=== PATIENT | female | born 1990 | race American Indian/Alaskan Native ===

== ENCOUNTER 2019-12-30 05:10 | Emergency (ER) | payer SELFPAY ==
[2019-12-30] MEDS ORDERED: HYDROcodone/ACETAMINOPHEN 5-325 MG TAB ONE (09:45)
--- NOTE | 2019-12-31 08:08 | Ultrasound Report ---
[facility] OBSTETRIC ULTRASOUND ULTRASOUND OB TRANSVAGINAL HISTORY: Vaginal bleeding COMPARISON: None. TECHNIQUE: Routine transabdominal and transvaginal OB ultrasound performed. Comment: This examination is just presented to me for interpretation due to technical factors at the hospital. FINDINGS: Uterus: Anteverted and normal size measuring 7.7 x 4.1 x 4.6 cm. Gestational Sac: Well-defined but slightly elongated. Yolk Sac: Not clearly seen Fetus/Embryo: Commerce-rump length of 0.33 cm, corresponding to an estimated gestational age of 6 weeks 0 days. Embryonic/ anatomy is too small for evaluation. Embryonic/ cardiac activity: 78bpm Placenta: Too small for evaluation. Amniotic fluid volume: Subjectively appropriate for gestational age. Ovaries: The right ovary is normal in size and appearance with normal blood flow, measuring 3.1 x 1. 5 x 3.4 cm. The left ovary is normal in size and appearance with normal blood flow, measuring 2.2 x 3.5 x 4.5 cm. Additional findings: None. IMPRESSION An intrauterine gestational sac containing a fetus is identified which correlates with a 6 week 0 day . The gestational sac appears slightly elongated. The yolk sac is not clearly seen. h eart rate measures 78 bpm. Close interval follow-up is recommended. Signer Name: Zi Noland Jr, MD Signed: 12/31/2019 8:04 AM Workstation Name: [id number]
[2020-01-07 13:33] LABS: Alanine Aminotransferase 12 units/L (7-56); BUN/Creatinine Ratio 23; Blood Urea Nitrogen 18 mg/dL (7-17); Calcium 9.3 mg/dL (8.4-10.2)
[2020-01-07 13:34] LABS: Albumin 4.4 g/dL (3.9-5)
[2020-01-07 13:34] LABS: BUN/Creatinine Ratio 23; Blood Urea Nitrogen 16 mg/dL (7-17)
[2020-01-07 13:35] LABS: Alanine Aminotransferase 14 units/L (7-56); Albumin 4.1 g/dL (3.9-5); Calcium 9.2 mg/dL (8.4-10.2)
== END 2019-12-30 20:00 | disposition home or self-care (01) ==
LOC: ED 05:10
DX: N93.9 Abnormal uterine and vaginal bleeding, unspecified (principal); Z53.21 Procedure and treatment not carried out due to patient leaving prior to being seen by health care provider
CPT/HCPCS: 36415; 76801; 76817; 80053

== ENCOUNTER 2020-01-01 16:29 | Emergency (ER) | payer SELFPAY ==
[2020-01-01 17:54] LABS: Bilirubin,Urine NEG (Negative); Blood,Urine NEG (Negative); Color,Urine Yellow (Yellow); Mucus,Urine FEW /HPF; Protein,Urine <15 mg/dL mg/dL (Negative); Urobilinogen,Urine < 2.0 mg/dL (<2.0)
[2020-01-01 17:59] LABS: Basophils % (Auto) 0.5 % (0.0-1.8); Eosinophils # (Auto) 0.1 K/mm3 (0.0-0.4); Eosinophils % (Auto) 1.4 % (0.0-4.3); Hematocrit 34.3 % (30.3-42.9); Hemoglobin 11.1 gm/dl (10.1-14.3); Lymphocytes % (Auto) 28.8 % (13.4-35.0); Mean Corpuscular HGB Conc 32 % (30-34); Mean Corpuscular Volume 75 fl (79-97); Monocytes # (Auto) 0.8 K/mm3 (0.0-0.8); Monocytes % (Auto) 10.9 % (0.0-7.3); Platelet Count 232 K/mm3 (140-440); Red Blood Count 4.55 M/mm3 (3.65-5.03); Red Cell Distribution Width 15.4 % (13.2-15.2)
[2020-01-01 18:08] LABS: BUN/Creatinine Ratio 15; Blood Urea Nitrogen 12 mg/dL (7-17); Calcium 9.7 mg/dL (8.4-10.2); Hemolysis Index 4
--- NOTE | 2020-01-01 18:49 | Emergency Department Report ---
<PETR CHRISTIANSON - Last Filed: 01/01/20 20:44> ED General Adult HPI - General Chief complaint: Recheck/Abnormal Lab/Rx Stated complaint: FOLLOW UP ED VISIT Time Seen by Provider: 01/01/20 17:22 - Related Data Allergies Allergy/AdvReac Type Severity Reaction Status Date / Time No Known Allergies Allergy Unverified 01/01/20 16:30 ED Medical Decision Making - Lab Data Result diagrams: 01/01/20 17:23 01/01/20 17:23 - Radiology Data Radiology results: report reviewed, image reviewed Findings Reporting MD: Lj Loving Dictation Time: January 01, 2020 17:56 Enrolled Agent: Not available [employer] Date: US OB <= 14 weeks fetus INDICATION / CLINICAL INFORMATION: abd cramping, spotting, abnormal US on 12/29. COMPARISON: 12/30/2019 FINDINGS: A 1.6 cm gestational sac is demonstrated within the endometrial canal, but there is no evidence of pole. Ovaries are negative. No free fluid. IMPRESSION: 1. Findings are very suggestive of demise. Suggest follow-up in 4-5 days to confirm. Signer Name: Lj Loving MD Signed: 01/01/2020 5:56 PM Workstation Name: [id number] ED Disposition Clinical Impression: demise Disposition: DC- TO HOME OR SELFCARE Condition: Stable Instructions: Threatened Miscarriage (ED) Additional Instructions: Please follow-up with [facility] within the next 2 days. It is very important that you follow-up. Return to emergency room for any new or worsening symptoms. Referrals: [facility] [Provider Group] - 2-3 Days [facility] [Provider Group] - 2-3 Days [facility] [Provider Group] - 2-3 Days Print Language: NEPALI <KINGSTON LARA - Last Filed: 01/01/20 21:53> ED General Adult HPI - General Source: patient Mode of arrival: Ambulatory Limitations: No Limitations - History of Present Illness Initial comments: Patient is a 29-year-old female presents emergency room with complaints of a recheck. Patient states that she was evaluated in the emergency department 2 days ago due to heavy vaginal bleeding. She had an ultrasound performed at that time which showed an intrauterine gestational sac containing a fetus is identified which correlates with a 6-week 0-day . The gestational sac appears slightly elongated. The yolk sac is not clearly seen. heart rate measured 78 bpm. Close interval follow-up is recommended. This patient was seen during downtime procedures, her labs are not available for review. She states that the heavy bleeding has resolved. She states that she has intermittent very mild lower abdominal cramping. She denies any significant abd ominal pain. She denies any nausea, vomiting, diarrhea, fever, dysuria, abnormal vaginal discharge. Patient states that she had a tubal ligation. No past medical history. No allergies medications. ED Review of Systems ROS: Stated complaint: FOLLOW UP ED VISIT Other details as noted in HPI Comment: All other systems reviewed and negative ED Past Medical Hx - Past Medical History Hx Hypertension: Yes - Surgical History Additional Surgical History: TUBAL LIG ED Physical Exam - General Limitations: No Limitations General appearance: alert, in no apparent distress - Head Head exam: Present: atraumatic, normocephalic - Eye Eye exam: Present: normal appearance - ENT ENT exam: Present: mucous membranes moist - Respiratory Respiratory exam: Present: normal lung sounds bilaterally. Absent: respiratory distress, wheezes, rales, rhonchi, stridor, chest wall tenderness, accessory muscle use, decreased breath sounds, prolonged expiratory - Cardiovascular Cardiovascular Exam: Present: regular rate, normal rhythm, normal heart sounds. Absent: systolic murmur, diastolic murmur, rubs, gallop - GI/Abdominal GI/Abdominal exam: Present: soft, normal bowel sounds. Absent: distended, tenderness, guarding, rebound, rigid - Neurological Exam Neurological exam: Present: alert, oriented X3, CN II-XII intact, normal gait. Absent: motor sensory deficit - Psychiatric Psychiatric exam: Present: normal affect, normal mood - Skin Skin exam: Present: warm, dry, intact ED Course Vital Signs 01/01/20 01/01/20 16:32 20:58 Temperature 98.8 F Pulse Rate 92 H 86 Respiratory 16 18 Rate Blood Pressure 119/80 Blood Pressure 128/82 [Left] O2 Sat by Pulse 97 100 Oximetry ED Medical Decision Making - Lab Data Result diagrams: 01/01/20 17:23 01/01/20 17:23 - Radiology Data Radiology results: report reviewed, image reviewed - Medical Decision Making Patient is a 29-year-old female presents emergency room with complaints of a recheck. Patient states that she was evaluated in the emergency department 2 days ago due to heavy vaginal bleeding. She had an ultrasound performed at that time which showed an intrauterine gestational sac containing a fetus is identified which correlates with a 6-week 0-day . The gestational sac appears slightly elongated. The yolk sac is not clearly seen. heart rate measured 78 bpm. Close interval follow-up is recommended. This patient was seen during downtime procedures, her labs are not available for review. She states that the heavy bleeding has resolved. She states that she has intermittent very mild lower abdominal cramping. She denies any significant abdominal pain. She denies any nausea, vomiting, diarrhea, fever, dysuria, abnormal vaginal discharge. Patient states that she had a tubal ligation. No past medical history. No allergies medications. Vitals are normal. No abdominal tenderness on exam, no guarding, no rebound, no rigidity. Labs are normal. hCG quant is less than 2. Patient is Rh+. OB ultrasound: 1. Findings are very suggestive of demise. Suggest follow-up in 4-5 days to confirm. Discussed with patient that at this appears to be demise with retained products of conception. Advised patient that she would need to follow-up with [facility] within the next 2 days. Discussed the importance of [facility] follow-up. Discussed with patient that the risk associated with not following up would be a serious infection. Patient verbalized understanding and states that she will follow-up. advised pt Please follow-up with [facility] within the next 2 days. It is very important that you follow-up. Return to emergency room for any new or worsening symptoms. - Differential Diagnosis Ectopic, IUP, threatened/spontaneous miscarriage, demise Critical care attestation.: If time is entered above; I have spent that time in minutes in the direct care of this critically ill patient, excluding procedure time. ED Disposition Is pt being admited?: No Does the pt Need Aspirin: No Time of Disposition: 20:46
[2020-01-01 20:59] VITALS: BP 128/82
--- NOTE | 2020-01-02 07:54 | Ultrasound Report ---
US OB transvaginal INDICATION / CLINICAL INFORMATION: abd cramping, spotting, abnormal US on 12/29. COMPARISON: 12/30/2019 FINDINGS: Uterus now contains a 1.6 cm cystic structure in the endometrial canal. No evidence of pole or yolk sac. Endometrial thickness measures 6 mm. Both ovaries appear unremarkable. No free fluid. IMPRESSION: 1. Gestational sac but no evidence of pole. Suggest follow-up in 4-5 days to confirm stuart se. Signer Name: Lj Loving MD Signed: 01/01/2020 6:54 PM Workstation Name: [id number]
--- NOTE | 2020-01-02 07:55 | Ultrasound Report ---
US OB <= 14 weeks fetus INDICATION / CLINICAL INFORMATION: abd cramping, spotting, abnormal US on 12/29. COMPARISON: 12/30/2019 FINDINGS: A 1.6 cm gestational sac is demonstrated within the endometrial canal, but there is no evidence of fe magalis pole. Ovaries are negative. No free fluid. IMPRESSION: 1. Findings are very suggestive of demise. Suggest follow-up in 4-5 days to confirm. Signer Name: Lj Loving MD Signed: 01/01/2020 6:56 PM Workstation Name: [id number]
== END 2020-01-01 20:59 | disposition home or self-care (01) ==
LOC: ED 16:29
DX: O36.4XX1 Maternal care for intrauterine death, fetus 1 (principal)
CPT/HCPCS: 36415; 76801; 76817; 80048; 81001; 84702; 85025; 86900; 86901

== ENCOUNTER 2020-03-12 13:44 | Emergency (ER) | payer SELFPAY ==
[2020-03-12 14:02] VITALS: BP 164/96
[2020-03-12] MEDS ORDERED: diphenhydrAMINE 50 MG/ML VIAL IV ONE (14:02)
[2020-03-12] MEDS ORDERED: dexAMETHasone 20 MG/5 ML VIAL IV ONE (14:02)
[2020-03-12] MEDS ORDERED: FAMOTIDINE 20 MG/2 ML INJ IV ONE (14:02)
--- NOTE | 2020-03-12 14:03 | Event Note ---
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 Further treatment and workup at subsequent clinical providers discretion. Patient/guardian urged not to elope from the ED as their condition may be serious if not clinically assessed and managed. Initial orders include: Meds Watch and wait
--- NOTE | 2020-03-12 14:16 | Emergency Department Report ---
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 She suspects that she ate carrots. She has diffuse itching throughout her body facial rash her throat feels scratchy. She denies shortness of breath. No syncope. Severe discomfort with pruritus generalized itchiness. -: Sudden Location: head, chest, abdomen, left, right, upper extremity, lower extremity Severity scale (0 -10): 4 Quality: burning (Throat burning scratchiness) Consistency: constant Improves with: none Worsens with: none Associated Symptoms: other (Facial rash diffuse itching) - Related Data Previous Rx's Medication Instructions Recorded Last Taken Type EPINEPHrine [Epipen] 0.3 mg IJ ONCE #1 auto.injct 03/12/20 Unknown Rx Famotidine [Acid Controller] 20 mg PO BID 3 Days #6 tablet 03/12/20 Unknown Rx Prednisone [predniSONE 10 mg 10 mg PO .TAPER #1 tab.ds.pk 03/12/20 Unknown Rx (6-Day Pack, 21 Tabs)] diphenhydrAMINE [Benadryl CAP] 25 mg PO QHS 3 Days #12 capsule 03/12/20 Unknown Rx Allergies Allergy/AdvReac Type Severity Reaction Status Date / Time carrot Allergy Anaphylaxis Verified 03/12/20 13:59 pineapple Allergy Anaphylaxis Verified 03/12/20 13:59 ED Review of Systems ROS: Stated complaint: ALLERGIC REACTION; ITCHING; SORE THROAT Other details as noted in HPI Comment: All other systems reviewed and negative Constitutional: denies: fever, malaise Respiratory: denies: cough, shortness of breath Cardiovascular: denies: chest pain Gastrointestinal: denies: abdominal pain, nausea, vomiting ED Past Medical Hx - Past Medical History Previous Medical History?: Yes Hx Hypertension: Yes - Surgical History Past Surgical History?: Yes Additional Surgical History: TUBAL LIG - Medications Home Medications: Home Medications Medication Instructions Recorded Confirmed Last Taken Type EPINEPHrine [Epipen] 0.3 mg IJ ONCE #1 auto.injct 03/12/20 Unknown Rx Famotidine [Acid Controller] 20 mg PO BID 3 Days #6 tablet 03/12/20 Unknown Rx Prednisone [predniSONE 10 mg 10 mg PO .TAPER #1 tab.ds.pk 03/12/20 Unknown Rx (6-Day Pack, 21 Tabs)] diphenhydrAMINE [Benadryl CAP] 25 mg PO QHS 3 Days #12 capsule 03/12/20 Unknown Rx ED Physical Exam - General Limitations: No Limitations General appearance: alert, in no apparent distress, other (Normal voice) - Head Head exam: Present: atraumatic, normocephalic - Eye Eye exam: Present: normal appearance - ENT ENT exam: Present: mucous membranes moist, other (Mildly edematous lips normal tongue sounds no soft palatal swelling) - Neck Neck exam: Present: normal inspection, full ROM - Respiratory Respiratory exam: Present: normal lung sounds bilaterally. Absent: respiratory distress - Cardiovascular Cardiovascular Exam: Present: regular rate, normal rhythm, normal heart sounds. Absent: systolic murmur, diastolic murmur, rubs, gallop - GI/Abdominal GI/Abdominal exam: Present: soft, normal bowel sounds. Absent: distended, tenderness, guarding, rebound - Extremities Exam Extremities exam: Present: normal inspection - Back Exam Back exam: Present: normal inspection - Neurological Exam Neurological exam: Present: alert, oriented X3 - Psychiatric Psychiatric exam: Present: normal affect, normal mood - Skin Skin exam: Present: warm, intact, other (Puffy eyes, pain erythema involving forehead face). Absent: rash ED Course Vital Signs 03/12/20 13:59 Temperature 98.3 F Pulse Rate 90 Respiratory 18 Rate Blood Pressure 164/96 [Right] O2 Sat by Pulse 100 Oximetry ED Medical Decision Making - Medical Decision Making Acute allergic reaction to food. After receiving IV famotidine, diphenhydramine and IV steroids, symptoms completely resolved. She did not have any significant angioedema which will require further observation. She was prescribed EpiPen, prednisone taper, famotidine and diphenhydramine. She was referred to outpatient medicine physician. Critical Care Time: Yes Critical care time in (mins) excluding proc time.: 40 Critical care attestation.: If time is entered above; I have spent that time in minutes in the direct care of this critically ill patient, excluding procedure time. 40 minutes of critical care time excluding procedures were used in the care of the patient. I came immediately to the bedside upon patient's arrival to treatment room, I was concerned for possible airway compromise with angioedema. I discussed treatment plan with the nursing team members. I reviewed electronic record. Patient required multiple interventions and reassessments. ED Disposition Clinical Impression: Acute allergic reaction Disposition: - TO HOME OR SELFCARE Is pt being admited?: No Does the pt Need Aspirin: No Condition: Stable Instructions: Anaphylactic Reaction, Adult, Epinephrine injection (Auto- injector) Prescriptions: diphenhydrAMINE [Benadryl CAP] 25 mg PO QHS 3 Days #12 capsule Famotidine [Acid Controller] 20 mg PO BID 3 Days #6 tablet EPINEPHrine [Epipen] 0.3 mg IJ ONCE #1 auto.injct Prednisone [predniSONE 10 mg (6-Day Pack, 21 Tabs)] 10 mg PO .TAPER #1 tab.ds.pk Referrals: TODD SOLANO MD [Staff Physician] - 3-5 Days
== END 2020-03-12 17:14 | disposition home or self-care (01) ==
LOC: ED 13:44
DX: T78.40XA Allergy, unspecified, initial encounter (principal); I10 Essential (primary) hypertension; Z79.899 Other long term (current) drug therapy; Z91.018 Allergy to other foods
CPT/HCPCS: 96374; 96375; 99282; J1100; J1200

== ENCOUNTER 2020-05-26 15:28 | Emergency (ER) | payer SELFPAY ==
[2020-05-26 15:40] VITALS: BP 125/80
--- NOTE | 2020-05-26 16:30 | Emergency Department Report ---
ED General Adult HPI - General Chief complaint: Dental/Oral Stated complaint: SOUTH SWELLING/GUM SWELLING Time Seen by Provider: 05/26/20 15:51 Source: patient Mode of arrival: Ambulatory Limitations: No Limitations - History of Present Illness Initial comments: 30-year-old -[place] female patient presents with complaints of left lower dental pain x 1 day. She rates her pain as a 9/10 in severity and states it is not improved with ibuprofen or Aleve. She denies any fever/chills/sweats, difficulty opening her jaw, or dysphagia. Patient also states she noted a white bump on her gums this morning. She also reports that a piece of her tooth broke off yesterday. Patient states she has a an appointment scheduled with a dental specialist this coming Sunday - Related Data Previous Rx's Medication Instructions Recorded Last Taken Type EPINEPHrine [Epipen] 0.3 mg IJ ONCE #1 auto.injct 03/12/20 Unknown Rx Famotidine [Acid Controller] 20 mg PO BID 3 Days #6 tablet 03/12/20 Unknown Rx Prednisone [predniSONE 10 mg 10 mg PO .TAPER #1 tab.ds.pk 03/12/20 Unknown Rx (6-Day Pack, 21 Tabs)] diphenhydrAMINE [Benadryl CAP] 25 mg PO QHS 3 Days #12 capsule 03/12/20 Unknown Rx Acetaminophen/Codeine [Tylenol 1 tab PO Q8H PRN #8 tab 05/26/20 Unknown Rx /Codeine # 3 tab] Clindamycin [Clindamycin CAP] 300 mg PO Q6H 10 Days #40 capsule 05/26/20 Unknown Rx Allergies Allergy/AdvReac Type Severity Reaction Status Date / Time carrot Allergy Anaphylaxis Verified 03/12/20 13:59 pineapple Allergy Anaphylaxis Verified 03/12/20 13:59 ED Review of Systems ROS: Stated complaint: SOUTH SWELLING/GUM SWELLING Other details as noted in HPI Constitutional: denies: chills, diaphoresis, fever, malaise ENT: dental pain. denies: ear pain, throat pain Respiratory: denies: cough, shortness of breath Cardiovascular: denies: chest pain Skin: denies: rash, change in color Neurological: denies: headache Hematological/Lymphatic: denies: swollen glands ED Past Medical Hx - Past Medical History Hx Hypertension: Yes - Surgical History Additional Surgical History: TUBAL LIG - Social History Smoking Status: Never Smoker Substance Use Type: None - Medications Home Medications: Home Medications Medication Instructions Recorded Confirmed Last Taken Type EPINEPHrine [Epipen] 0.3 mg IJ ONCE #1 auto.injct 03/12/20 Unknown Rx Famotidine [Acid Controller] 20 mg PO BID 3 Days #6 tablet 03/12/20 Unknown Rx Prednisone [predniSONE 10 mg 10 mg PO .TAPER #1 tab.ds.pk 03/12/20 Unknown Rx (6-Day Pack, 21 Tabs)] diphenhydrAMINE [Benadryl CAP] 25 mg PO QHS 3 Days #12 capsule 03/12/20 Unknown Rx Acetaminophen/Codeine [Tylenol 1 tab PO Q8H PRN #8 tab 05/26/20 Unknown Rx /Codeine # 3 tab] Clindamycin [Clindamycin CAP] 300 mg PO Q6H 10 Days #40 capsule 05/26/20 Unknown Rx ED Physical Exam - General Limitations: No Limitations General appearance: alert, in no apparent distress - Head Head exam: Present: atraumatic, normocephalic - Eye Eye exam: Present: normal appearance. Absent: scleral icterus - Expanded ENT Exam Expanded Mouth exam: Present: tongue normal. Absent: drooling, trismus, muffled voice Teeth exam: Absent: dental caries 1 - Fractured, Dental Tenderness, Other (Small dental abscess noted with mild swelling to the gums; no overlying facial swelling noted) Throat exam: Positive: normal inspection - Neck Neck exam: Present: normal inspection - Respiratory Respiratory exam: Absent: respiratory distress - Cardiovascular Cardiovascular Exam: Present: regular rate - Neurological Exam Neurological exam: Present: alert, oriented X3 - Psychiatric Psychiatric exam: Present: normal affect, normal mood - Skin Skin exam: Present: warm, dry, intact, normal color. Absent: rash, erythema ED Course Vital Signs 05/26/20 15:37 Temperature 98.3 F Pulse Rate 85 Respiratory 20 Rate Blood Pressure 125/80 O2 Sat by Pulse 99 Oximetry ED Medical Decision Making - Medical Decision Making 30-year-old -[place] female patient presents with complaints of left lower dental pain x 1 day. She rates her pain as a 9/10 in severity and states it is not improved with ibuprofen or Aleve. She denies any fever/chills/sweats, difficulty opening her jaw, or dysphagia. Patient also states she noted a white bump on her gums this morning. She also reports that a piece of her tooth broke off yesterday. Patient states she has a an appointment scheduled with a dental specialist this coming Sunday Dental abscess noted on exam with minimal facial swelling. Patient declines incision and drainage. Will treat with clindamycin and warm compresses. Patient to follow-up with her dental specialist as scheduled. Discussed signs and symptoms that should prompt immediate return to the emergency department in detail with patient who verbalizes understanding. Her vitals are normal, she is well-appearing, she is stable for discharge home. Critical care attestation.: If time is entered above; I have spent that time in minutes in the direct care of this critically ill patient, excluding procedure time. ED Disposition Clinical Impression: Dental abscess Disposition: DC- TO HOME OR SELFCARE Is pt being admited?: No Condition: Stable Instructions: Dental Abscess Additional Instructions: Please follow up with your dental specialist as scheduled 07/01/20 Prescriptions: Clindamycin [Clindamycin CAP] 300 mg PO Q6H 10 Days #40 capsule Acetaminophen/Codeine [Tylenol /Codeine # 3 tab] 1 tab PO Q8H PRN #8 tab PRN Reason: Pain , Severe (7-10) Forms: Work/School Release Form(ED)
== END 2020-05-26 16:40 | disposition home or self-care (01) ==
LOC: ED 15:28
DX: K04.7 Periapical abscess without sinus (principal); I10 Essential (primary) hypertension; Z79.899 Other long term (current) drug therapy; Z91.018 Allergy to other foods; Z98.51 Tubal ligation status
CPT/HCPCS: 99282

== ENCOUNTER 2020-08-06 13:02 | Emergency (ER) | payer SELFPAY ==
--- NOTE | 2020-08-06 14:30 | Event Note ---
ED Screening Note Date of service: 08/06/20 Time: 14:29 ED Screening Note: 30-year-old female patient presents emergency department with complaints of dizziness and lightheadedness starting yesterday. Symptoms began while patient was at work and worsened today while patient was at work. No recent fall, trauma, or injury. Last menstrual cycle was July 16-. Denies chest pain, shortness of breath, syncope, vomiting. General: Awake, appropriately interactive, no acute distress. Neck: Supple. Full range of motion intact. Cardiovascular: Normal peripheral perfusion. Pulmonary: No respiratory distress. Patient is speaking normally without use of accessory muscles. Skin: No apparent rashes or lesions. Neurological: No facial asymmetry. Speech is clear. Follows commands. Patient is alert and oriented. Musculoskeletal: Moves all four extremities spontaneously with normal range of motion. Psych: Cooperative. Appropriate mood and affect. I have greeted and performed a focused rapid initial assessment of this patient. A comprehensive ED assessment and evaluation of the patient, analysis of all test results, and completion of the medical decision-making process will be conducted by additional ED providers. This initial assessment/diagnostic orders/clinical plan/treatment(s) is/are subject to change based on patients health status, clinical progression and re-assessment. Further treatment and workup at subsequent clinical provider's discretion. Patient/guardian urged not to elope from the ED as their condition may be serious if not clinically assessed and managed.
[2020-08-06 15:15] LABS: Basophils % (Auto) 0.4 % (0.0-1.8); Eosinophils # (Auto) 0.1 K/mm3 (0.0-0.4); Eosinophils % (Auto) 1.5 % (0.0-4.3); Hematocrit 33.7 % (30.3-42.9); Hemoglobin 10.5 gm/dl (10.1-14.3); Lymphocytes # (Auto) 2.4 K/mm3 (1.2-5.4); Lymphocytes % (Auto) 29.3 % (13.4-35.0); Mean Corpuscular HGB Conc 31 % (30-34); Mean Corpuscular Volume 75 fl (79-97); Monocytes % (Auto) 11.7 % (0.0-7.3); Platelet Count 193 K/mm3 (140-440); Red Blood Count 4.46 M/mm3 (3.65-5.03); Red Cell Distribution Width 17.6 % (13.2-15.2)
[2020-08-06 15:21] LABS: Alanine Aminotransferase 13 units/L (7-56); Albumin 4.5 g/dL (3.9-5); Blood Urea Nitrogen 14 mg/dL (7-17); Calcium 8.9 mg/dL (8.4-10.2); Hemolysis Index 7
[2020-08-06 15:29] LABS: BUN/Creatinine Ratio 20
--- NOTE | 2020-08-06 17:01 | Emergency Department Report ---
ED Dizziness HPI - General Chief Complaint: Dizziness Stated Complaint: FAINT/DIZZY Time Seen by Provider: 08/06/20 16:49 Source: patient Mode of arrival: Ambulatory Limitations: No Limitations - History of Present Illness Initial Comments: 30-year-old female, history of hypertension, presents to ED with complaint of dizziness since yesterday. Patient states she has been dealing with a sinus infection since last week. Reports congestion, denies headache or fever. States she has been taking Claritin and [id number] sinus medication. Patient describes her dizziness is more room spinning. Worse with bending over and then standing up. She denies any nausea, vomiting, abdominal pain, chest pain, shortness of breath, leg pain or swelling. Patient denies any tobacco, alcohol, drug use. MD Complaint: dizziness -: days(s) (2) Description: "room spinning" History of Same: No History of Trauma: No Severity: mild Improves With: remaining still Worsens With: movement, position Associated Symptoms: denies: ataxia, chest pain, confusion, cough, diaphoresis, fever/chills, shortness of breath, syncope - Related Data Previous Rx's Medication Instructions Recorded Last Taken Type EPINEPHrine [Epipen] 0.3 mg IJ ONCE #1 auto.injct 03/12/20 Unknown Rx Famotidine [Acid Controller] 20 mg PO BID 3 Days #6 tablet 03/12/20 Unknown Rx Prednisone [predniSONE 10 mg 10 mg PO .TAPER #1 tab.ds.pk 03/12/20 Unknown Rx (6-Day Pack, 21 Tabs)] diphenhydrAMINE [Benadryl CAP] 25 mg PO QHS 3 Days #12 capsule 03/12/20 Unknown Rx Acetaminophen/Codeine [Tylenol 1 tab PO Q8H PRN #8 tab 05/26/20 Unknown Rx /Codeine # 3 tab] Clindamycin [Clindamycin CAP] 300 mg PO Q6H 10 Days #40 capsule 05/26/20 Unknown Rx Fluticasone [Flonase] 1 spray NS QDAY #1 bottle 08/06/20 Unknown Rx Meclizine [Antivert] 25 mg PO TID PRN #20 tablet 08/06/20 Unknown Rx Allergies Allergy/AdvReac Type Severity Reaction Status Date / Time carrot Allergy Anaphylaxis Verified 03/12/20 13:59 pineapple Allergy Anaphylaxis Verified 03/12/20 13:59 ED Review of Systems ROS: Stated complaint: FAINT/DIZZY Other details as noted in HPI Comment: All other systems reviewed and negative Constitutional: denies: fever ENT: congestion Respiratory: denies: cough, shortness of breath Cardiovascular: denies: chest pain Gastrointestinal: denies: abdominal pain, nausea, vomiting, diarrhea Neurological: vertigo. denies: headache ED Past Medical Hx - Past Medical History Previous Medical History?: Yes Hx Hypertension: Yes - Surgical History Past Surgical History?: Yes Additional Surgical History: TUBAL LIG - Social History Smoking Status: Never Smoker Substance Use Type: None - Medications Home Medications: Home Medications Medication Instructions Recorded Confirmed Last Taken Type EPINEPHrine [Epipen] 0.3 mg IJ ONCE #1 auto.injct 03/12/20 Unknown Rx Famotidine [Acid Controller] 20 mg PO BID 3 Days #6 tablet 03/12/20 Unknown Rx Prednisone [predniSONE 10 mg 10 mg PO .TAPER #1 tab.ds.pk 03/12/20 Unknown Rx (6-Day Pack, 21 Tabs)] diphenhydrAMINE [Benadryl CAP] 25 mg PO QHS 3 Days #12 capsule 03/12/20 Unknown Rx Acetaminophen/Codeine [Tylenol 1 tab PO Q8H PRN #8 tab 05/26/20 Unknown Rx /Codeine # 3 tab] Clindamycin [Clindamycin CAP] 300 mg PO Q6H 10 Days #40 capsule 05/26/20 Unknown Rx Fluticasone [Flonase] 1 spray NS QDAY #1 bottle 08/06/20 Unknown Rx Meclizine [Antivert] 25 mg PO TID PRN #20 tablet 08/06/20 Unknown Rx ED Physical Exam - General Limitations: No Limitations General appearance: alert, in no apparent distress - Head Head exam: Present: atraumatic, normocephalic - Eye Eye exam: Present: normal appearance, EOMI - ENT ENT exam: Present: mucous membranes moist, other (No sinus tenderness present) - Neck Neck exam: Present: normal inspection - Respiratory Respiratory exam: Present: normal lung sounds bilaterally. Absent: respiratory distress - Cardiovascular Cardiovascular Exam: Present: regular rate, normal rhythm - GI/Abdominal GI/Abdominal exam: Present: soft. Absent: distended, tenderness - Extremities Exam Extremities exam: Present: normal inspection. Absent: pedal edema, calf tenderness - Neurological Exam Neurological exam: Present: alert, oriented X3, CN II-XII intact, normal gait. Absent: motor sensory deficit - Psychiatric Psychiatric exam: Present: normal affect, normal mood - Skin Skin exam: Present: warm, dry, intact, normal color ED Course Vital Signs 08/06/20 08/06/20 08/06/20 13:05 15:21 16:00 Temperature 98.4 F Pulse Rate 91 H Respiratory 18 Rate Blood Pressure 164/114 179/101 Blood Pressure 139/67 [Right] O2 Sat by Pulse 98 99 100 Oximetry 08/06/20 08/06/20 08/06/20 17:52 18:00 19:00 Temperature Pulse Rate 80 78 Respiratory 16 18 Rate Blood Pressure 179/101 135/82 122/66 Blood Pressure [Right] O2 Sat by Pulse 99 99 99 Oximetry 08/06/20 20:03 Temperature Pulse Rate Respiratory 16 Rate Blood Pressure Blood Pressure [Right] O2 Sat by Pulse Oximetry ED Medical Decision Making - Lab Data Result diagrams: 08/06/20 14:47 08/06/20 14:47 - EKG Data -: EKG Interpreted by Ms EKG shows normal: sinus rhythm, axis, intervals, QRS complexes, ST-T waves Rate: normal - EKG Data Interpretation: no acute changes - Medical Decision Making 30-year-old female presents to ED with dizziness since yesterday. Patient reports she is called suffering from sinus congestion. Patient reports room spinning, worse with position. Patient slightly orthostatic as well. IV fluids and meclizine given. He is feeling much better at this time. No neuro deficits on exam. Patient will be discharged home with prescriptions. Outpatient follow-up advised, return precautions given. - Differential Diagnosis Dehydration, vertigo, sinusitis Critical care attestation.: If time is entered above; I have spent that time in minutes in the direct care of this critically ill patient, excluding procedure time. ED Disposition Clinical Impression: Vertigo, benign positional, Sinusitis Disposition: -01 TO HOME OR SELFCARE Is pt being admited?: No Condition: Stable Instructions: Vertigo, Hyxd-cw-Ytio, Sinusitis, Adult, Zqmw-[id number] Prescriptions: Meclizine [Antivert] 25 mg PO TID PRN #20 tablet PRN Reason: Vertigo Fluticasone [Flonase] 1 spray NS QDAY #1 bottle Referrals: NUBIA FREED MD [Referring] - as needed TAHIR BORRERO MD [Referring] - as needed PRIMARY CARE, [Primary Care Provider] - as needed [facility] [Provider Group] - as needed Forms: Work/School Release Form(ED)
[2020-08-06] MEDS ORDERED: MECLIZINE 25 MG TAB PO ONE (17:56)
[2020-08-06] MEDS ORDERED: SODIUM CHLORIDE 0.9% 1000 ML 1,000 ML IV ONE (17:56)
[2020-08-06 19:40] VITALS: BP 122/66
--- NOTE | 2020-08-09 10:34 | Electrocardiograph Report ---
[facility] Test Date: 2020-08-06 Test Time: 13:16:55 Pat Name: PAULETTE SHERWOOD Department: Room: Gender: F [employer]: DANA : 1990 Requested By: ED DOC Order Number: [id number] Reading MD: Octaviano Zheng Measurements Intervals [place] Rate: 80 P: 65 TX: 162 QRS: 58 QRSD: 88 T: 21 QT: 380 QTc: 437 Interpretive Statements Sinus rhythm No previous ECG available for comparison Electronically Signed On 08-09-2020 10:34:28 EDT by Octaviano Zheng
== END 2020-08-06 20:04 | disposition home or self-care (01) ==
LOC: ED 13:02
DX: H81.10 Benign paroxysmal vertigo, unspecified ear (principal); J32.9 Chronic sinusitis, unspecified; I10 Essential (primary) hypertension; Z98.51 Tubal ligation status; Z91.018 Allergy to other foods; Z79.899 Other long term (current) drug therapy; Z98.890 Other specified postprocedural states
CPT/HCPCS: 36415; 80053; 83735; 84703; 85025; 93005; 96360; 99283; J7030

== ENCOUNTER 2020-12-10 23:39 | Emergency (ER) | payer SELFPAY ==
[2020-12-11 01:06] VITALS: BP 134/83
--- NOTE | 2020-12-11 01:21 | Emergency Department Report ---
ED General Adult HPI - General Chief complaint: Back Pain/Injury Stated complaint: BACK PAIN LARGE KNOT Time Seen by Provider: 12/11/20 01:16 Source: patient Mode of arrival: Ambulatory Limitations: No Limitations - History of Present Illness Initial comments: 30-year-old female patient presents to the emergency department with complaints of painful swelling to her upper back starting approximately 1 week ago. No preceding fall, trauma, or injury. Patient has been taking Tylenol and ibuprofen with limited relief. She is not currently on any antibiotics. She does not have a primary care provider. Denies fever, chills, bleeding, drainage. Denies all other complaints at this time. - Related Data Previous Rx's Medication Instructions Recorded Last Taken Type EPINEPHrine [Epipen] 0.3 mg IJ ONCE #1 auto.injct 03/12/20 Unknown Rx Famotidine [Acid Controller] 20 mg PO BID 3 Days #6 tablet 03/12/20 Unknown Rx Prednisone [predniSONE 10 mg 10 mg PO .TAPER #1 tab.ds.pk 03/12/20 Unknown Rx (6-Day Pack, 21 Tabs)] diphenhydrAMINE [Benadryl CAP] 25 mg PO QHS 3 Days #12 capsule 03/12/20 Unknown Rx Acetaminophen/Codeine [Tylenol 1 tab PO Q8H PRN #8 tab 05/26/20 Unknown Rx /Codeine # 3 tab] Clindamycin [Clindamycin CAP] 300 mg PO Q6H 10 Days #40 capsule 05/26/20 Unknown Rx Fluticasone [Flonase] 1 spray NS QDAY #1 bottle 08/06/20 Unknown Rx Meclizine [Antivert] 25 mg PO TID PRN #20 tablet 08/06/20 Unknown Rx Naproxen 500 mg PO BID #20 tablet 12/11/20 Unknown Rx Sulfamethoxazole/Trimethoprim 1 each PO BID 7 Days tablet 12/11/20 Unknown Rx [Bactrim DS TAB] Allergies Allergy/AdvReac Type Severity Reaction Status Date / Time carrot Allergy Anaphylaxis Verified 03/12/20 13:59 pineapple Allergy Anaphylaxis Verified 03/12/20 13:59 ED Review of Systems ROS: Stated complaint: BACK PAIN LARGE KNOT Other details as noted in HPI Other: GENERAL: Negative for fever. CARDIOVASCULAR: Negative for chest pain. PULMONARY: Negative for shortness of breath. GASTROINTESTINAL: Negative for abdominal pain. MUSCULOSKELETAL: Negative for back pain. NEUROLOGICAL: Negative for headache. INTEGUMENTARY: Positive for painful swelling. ED Past Medical Hx - Past Medical History Previous Medical History?: Yes Hx Hypertension: Yes - Surgical History Past Surgical History?: Yes Additional Surgical History: TUBAL LIG - Social History Smoking Status: Never Smoker Substance Use Type: None - Medications Home Medications: Home Medications Medication Instructions Recorded Confirmed Last Taken Type EPINEPHrine [Epipen] 0.3 mg IJ ONCE #1 auto.injct 03/12/20 Unknown Rx Famotidine [Acid Controller] 20 mg PO BID 3 Days #6 tablet 03/12/20 Unknown Rx Prednisone [predniSONE 10 mg 10 mg PO .TAPER #1 tab.ds.pk 03/12/20 Unknown Rx (6-Day Pack, 21 Tabs)] diphenhydrAMINE [Benadryl CAP] 25 mg PO QHS 3 Days #12 capsule 03/12/20 Unknown Rx Acetaminophen/Codeine [Tylenol 1 tab PO Q8H PRN #8 tab 05/26/20 Unknown Rx /Codeine # 3 tab] Clindamycin [Clindamycin CAP] 300 mg PO Q6H 10 Days #40 capsule 05/26/20 Unknown Rx Fluticasone [Flonase] 1 spray NS QDAY #1 bottle 08/06/20 Unknown Rx Meclizine [Antivert] 25 mg PO TID PRN #20 tablet 08/06/20 Unknown Rx Naproxen 500 mg PO BID #20 tablet 12/11/20 Unknown Rx Sulfamethoxazole/Trimethoprim 1 each PO BID 7 Days tablet 12/11/20 Unknown Rx [Bactrim DS TAB] ED Physical Exam - General Limitations: No Limitations - Other Other exam information: General: Awake, appropriately interactive, no acute distress. Neck: Supple. Full range of motion intact. Cardiovascular: Normal peripheral perfusion. Pulmonary: No respiratory distress. Patient is speaking normally without use of accessory muscles. Skin: Cutaneous abscess to the mid-upper back approximately 2 cm diameter with minimal overlying erythema. The abscess is mostly indurated with very minimal fluctuance. No purulent drainage. No surrounding necrosis. No proximal streaking erythema. Pain is appropriately proportional to exam findings. Neurological: No facial asymmetry. Speech is clear. Follows commands. Patient is alert and oriented. Musculoskeletal: Moves all four extremities spontaneously with normal range of motion. Psych: Cooperative. Appropriate mood and affect. ED Course Vital Signs 12/11/20 12/11/20 01:04 01:06 Temperature 98.6 F Pulse Rate 89 Respiratory 17 Rate Blood Pressure 134/83 O2 Sat by Pulse 100 Oximetry ED Medical Decision Making - Medical Decision Making Differential diagnosis including but not limited to: abscess, cellulitis, necrotizing soft tissue infection, sebaceous cyst Patient presents to the emergency department with an abscess on her back. She is afebrile, hemodynamically stable, no distress. The abscess is largely indurated with very minimal fluctuance. Patient has not been on antibiotics at any point since the abscess appeared. Patient is an appropriate candidate for conservative management with warm compresses and oral antibiotics. Patient understands that incision and drainage may be reconsidered on an outpatient basis if remission is not achieved with conservative management. Referred to primary care provider for close outpatient follow-up. Borders of erythema were marked and patient was instructed to return to the emergency department if erythema continues to expand beyond marked borders after 24 hours of antibiotics. Patient expressed understanding and is agreeable to plan of care. Strict return precautions provided. Critical care attestation.: If time is entered above; I have spent that time in minutes in the direct care of this critically ill patient, excluding procedure time. ED Disposition Clinical Impression: Abscess of back Disposition: HOME / SELF CARE / HOMELESS Is pt being admited?: No Does the pt Need Aspirin: No Condition: Stable Instructions: Skin Abscess, [id number] Additional Instructions: Take Tylenol every 4 hours as needed for pain. Take Naprosyn twice daily with food as needed for pain. Take Bactrim twice daily with food. Increase your dietary intake of probiotic rich foods while taking this medication. Apply warm compresses to affected area 3 times daily. The area may begin to drain on its own. Do not attempt to forcefully express drainage from the area. Follow-up with primary care provider this week. Call Sunday to schedule an appointment. See referral information below. Return to the emergency department immediately for new or worsening symptoms. Specifically, return to the emergency department immediately for fever, worsening pain, increased swelling, or if redness expands beyond the marked borders after 24 hours of antibiotic therapy. Prescriptions: Sulfamethoxazole/Trimethoprim [Bactrim DS TAB] 1 each PO BID 7 Days tablet Naproxen 500 mg PO BID #20 tablet Referrals: TODD SOLANO MD [Staff Physician] - 3-5 Days [facility] [Provider Group] - 3-5 Days Time of Disposition: 01:22
== END 2020-12-11 02:02 | disposition home or self-care (01) ==
LOC: ED 23:39
DX: L02.212 Cutaneous abscess of back [any part, except buttock and flank] (principal); I10 Essential (primary) hypertension
CPT/HCPCS: 99282

== ENCOUNTER 2021-05-10 23:35 | Emergency (ER) | payer SELFPAY ==
[2021-05-11 00:08] LABS: Mucus,Urine FEW /HPF
[2021-05-11 00:13] LABS: Color,Urine Yellow (Yellow)
[2021-05-11 00:14] LABS: Bilirubin,Urine Negative (Negative); Blood,Urine Trace (Negative); Protein,Urine <15 mg/dL mg/dL (Negative); Urobilinogen,Urine < 2.0 mg/dL (<2.0)
[2021-05-11 00:22] LABS: Basophils # (Auto) 0.1 K/mm3 (0.0-0.1); Basophils % (Auto) 0.7 % (0.0-1.8); Eosinophils # (Auto) 0.1 K/mm3 (0.0-0.4); Eosinophils % (Auto) 1.2 % (0.0-4.3); Hematocrit 32.5 % (30.3-42.9); Hemoglobin 9.9 gm/dl (10.1-14.3); Lymphocytes # (Auto) 2.9 K/mm3 (1.2-5.4); Lymphocytes % (Auto) 38.5 % (13.4-35.0); Mean Corpuscular HGB Conc 31 % (30-34); Mean Corpuscular Volume 75 fl (79-97); Monocytes # (Auto) 0.9 K/mm3 (0.0-0.8); Monocytes % (Auto) 12.2 % (0.0-7.3); Platelet Count 223 K/mm3 (140-440); Red Blood Count 4.36 M/mm3 (3.65-5.03); Red Cell Distribution Width 17.9 % (13.2-15.2)
--- NOTE | 2021-05-11 04:41 | Ultrasound Report ---
ULTRASOUND PELVIS INDICATION / CLINICAL INFORMATION: dysmenorrhea and menorrhgia. TECHNIQUE: Transabdominal and Transvaginal. Duplex Color Doppler used: Yes. COMPARISON: None available FINDINGS: UTERUS: Uterus measures 8.8 x 4.0 x 4.6 cm. Endometrial stripe measures 6 mm. Margins are well-define d. Anechoic round structure within the cervix measuring 7 mm compatible with nabothian cyst. RIGHT ADNEXA: The right ovary measures 1.9 x 1.9 x 2.1 cm. No significant abnormality demonstrated. C olor flow present. No spectral Doppler waveforms recorded. LEFT ADNEXA: Left ovary is not identified. URINARY BLADDER: Not visualized. FREE FLUID: None. ADDITIONAL FINDINGS: None. IMPRESSION: 1. No acute findings. Left ovary not identified secondary to bowel gas. Signer Name: Serafin Page II, MD Signed: 05/11/2021 4:36 AM Workstation Name: [id number]
--- NOTE | 2021-05-11 05:01 | Emergency Department Report ---
ED Female HPI - General Chief complaint: Vaginal Bleeding Stated complaint: LOWER ABD PAIN/BACK PAIN Time Seen by Provider: 05/11/21 02:37 Source: patient Mode of arrival: Ambulatory Limitations: No Limitations - History of Present Illness Initial comments: 31-year-old female [facility] emergency department complaining of having. Earlier this month and then beginning to experience another. For about 2 weeks following her initial. Patient last for a couple days of normal variant with occasional cramping. Reports no traumatic injuries. No fever, chills, sweats. No dysuria no hematuria no nausea, no vomiting, no chest pain or palpitations. She reports no possibility of infection or STD MD Complaint: vaginal bleeding Location: suprapubic Severity scale (0 -10): 1 Improves with: none Worsens with: none Are you Now?: No - Related Data Previous Rx's Medication Instructions Recorded Last Taken Type EPINEPHrine [Epipen] 0.3 mg IJ ONCE #1 auto.injct 03/12/20 Unknown Rx Famotidine [Acid Controller] 20 mg PO BID 3 Days #6 tablet 03/12/20 Unknown Rx Prednisone [predniSONE 10 mg 10 mg PO .TAPER #1 tab.ds.pk 03/12/20 Unknown Rx (6-Day Pack, 21 Tabs)] diphenhydrAMINE [Benadryl CAP] 25 mg PO QHS 3 Days #12 capsule 03/12/20 Unknown Rx Acetaminophen/Codeine [Tylenol 1 tab PO Q8H PRN #8 tab 05/26/20 Unknown Rx /Codeine # 3 tab] Clindamycin [Clindamycin CAP] 300 mg PO Q6H 10 Days #40 capsule 05/26/20 Unknown Rx Fluticasone [Flonase] 1 spray NS QDAY #1 bottle 08/06/20 Unknown Rx Meclizine [Antivert] 25 mg PO TID PRN #20 tablet 08/06/20 Unknown Rx Naproxen 500 mg PO BID #20 tablet 12/11/20 Unknown Rx Sulfamethoxazole/Trimethoprim 1 each PO BID 7 Days tablet 12/11/20 Unknown Rx [Bactrim DS TAB] Allergies Allergy/AdvReac Type Severity Reaction Status Date / Time carrot Allergy Anaphylaxis Verified 03/12/20 13:59 pineapple Allergy Anaphylaxis Verified 03/12/20 13:59 ED Review of Systems ROS: Stated complaint: LOWER ABD PAIN/BACK PAIN Other details as noted in HPI Comment: All other systems reviewed and negative ED Past Medical Hx - Past Medical History Previous Medical History?: Yes Hx Hypertension: Yes - Surgical History Past Surgical History?: Yes Additional Surgical History: TUBAL LIG - Social History Smoking Status: Never Smoker Substance Use Type: None - Medications Home Medications: Home Medications Medication Instructions Recorded Confirmed Last Taken Type EPINEPHrine [Epipen] 0.3 mg IJ ONCE #1 auto.injct 03/12/20 Unknown Rx Famotidine [Acid Controller] 20 mg PO BID 3 Days #6 tablet 03/12/20 Unknown Rx Prednisone [predniSONE 10 mg 10 mg PO .TAPER #1 tab.ds.pk 03/12/20 Unknown Rx (6-Day Pack, 21 Tabs)] diphenhydrAMINE [Benadryl CAP] 25 mg PO QHS 3 Days #12 capsule 03/12/20 Unknown Rx Acetaminophen/Codeine [Tylenol 1 tab PO Q8H PRN #8 tab 05/26/20 Unknown Rx /Codeine # 3 tab] Clindamycin [Clindamycin CAP] 300 mg PO Q6H 10 Days #40 capsule 05/26/20 Unknown Rx Fluticasone [Flonase] 1 spray NS QDAY #1 bottle 08/06/20 Unknown Rx Meclizine [Antivert] 25 mg PO TID PRN #20 tablet 08/06/20 Unknown Rx Naproxen 500 mg PO BID #20 tablet 12/11/20 Unknown Rx Sulfamethoxazole/Trimethoprim 1 each PO BID 7 Days tablet 12/11/20 Unknown Rx [Bactrim DS TAB] ED Physical Exam - General Limitations: No Limitations General appearance: alert, in no apparent distress - Head Head exam: Present: atraumatic, normocephalic - Eye Eye exam: Present: normal appearance, PERRL, EOMI Pupils: Present: normal accommodation - ENT ENT exam: Present: mucous membranes moist - Neck Neck exam: Present: normal inspection - Respiratory Respiratory exam: Present: normal lung sounds bilaterally. Absent: respiratory distress - Cardiovascular Cardiovascular Exam: Present: regular rate, normal rhythm. Absent: systolic murmur, diastolic murmur, rubs, gallop - GI/Abdominal GI/Abdominal exam: Present: soft, normal bowel sounds - Extremities Exam Extremities exam: Present: normal inspection - Back Exam Back exam: Present: normal inspection - Neurological Exam Neurological exam: Present: alert, oriented X3 - Psychiatric Psychiatric exam: Present: normal affect, normal mood - Skin Skin exam: Present: warm, dry, intact, normal color. Absent: rash ED Course Vital Signs 05/10/21 23:44 Temperature 98.6 F Pulse Rate 84 Respiratory 17 Rate Blood Pressure 151/88 [Right] O2 Sat by Pulse 99 Oximetry ED Medical Decision Making - Lab Data Result diagrams: 05/11/21 00:09 - Radiology Data Radiology results: report reviewed [facility] [address] [place] [address] Ultrasound Report Signed Patient: PAULETTE SHERWOOD MR#: [id number] : 1990 Acct:[id number] Age/Sex: 31 / F ADM Date: 05/10/21 Loc: ED Attending Dr: Ordering Physician: VINCENZO QUIROZ Date of Service: 05/11/21 Procedure(s): US pelvic complete Accession Number(s): [id number] cc: VINCENZO QUIROZ ULTRASOUND PELVIS INDICATION / CLINICAL INFORMATION: dysmenorrhea and menorrhgia. TECHNIQUE: Transabdominal and Transvaginal. Duplex Color Doppler used: Yes. COMPARISON: None available FINDINGS: UTERUS: Uterus measures 8.8 x 4.0 x 4.6 cm. Endometrial stripe measures 6 mm. Margins are well- defined. Anechoic round structure within the cervix measuring 7 mm compatible with nabothian cyst. RIGHT ADNEXA: The right ovary measures 1.9 x 1.9 x 2.1 cm. No significant abnormality demonstrated. Color flow present. No spectral Doppler waveforms recorded. LEFT ADNEXA: Left ovary is not identified. URINARY BLADDER: Not visualized. FREE FLUID: None. ADDITIONAL FINDINGS: None. IMPRESSION: 1. No acute findings. Left ovary not identified secondary to bowel gas. Signer Name: Tahir Reyes II, MD Signed: 05/11/2021 4:36 AM Workstation Name: [id number] Transcribed By: ALLYSON Dictated By: TAHIR REYES II, MD Electronically Authenticated By: TAHIR REYES II, MD Signed Date/Time: 05/11/21435 DD/ 1 TD/TT: Print Cancel Critical care attestation.: If time is entered above; I have spent that time in minutes in the direct care of this critically ill patient, excluding procedure time. ED Disposition Clinical Impression: Menorrhagia Disposition: 01 HOME / SELF CARE / HOMELESS Is pt being admited?: No Does the pt Need Aspirin: No Condition: Stable Instructions: Abnormal Uterine Bleeding, Metrorrhagia, Menorrhagia Additional Instructions: Your ultrasound had no negative findings please be sure to follow-up with [facility] so they can evaluate other pathways which may have led to your symptoms Referrals: [facility] [Provider Group] - 3-5 Days
[2021-05-11 05:56] VITALS: BP 113/67
== END 2021-05-11 06:11 | disposition home or self-care (01) ==
LOC: ED 23:35
DX: N92.0 Excessive and frequent menstruation with regular cycle (principal); Z91.018 Allergy to other foods; I10 Essential (primary) hypertension
CPT/HCPCS: 36415; 76830; 76856; 81001; 84702; 85025; 86900; 86901; 99284

== ENCOUNTER 2021-05-23 07:22 | Emergency (ER) | payer SELFPAY ==
[2021-05-23 07:33] VITALS: BP 128/82
== END 2021-05-23 11:00 | disposition left against medical advice (07) ==
LOC: ED 07:22
DX: R10.30 Lower abdominal pain, unspecified (principal); Z53.21 Procedure and treatment not carried out due to patient leaving prior to being seen by health care provider

== ENCOUNTER 2021-06-17 21:50 | Emergency (ER) | payer SELFPAY ==
[2021-06-17 22:14] VITALS: BP 130/83
[2021-06-17] MEDS ORDERED: diphenhydrAMINE 50 MG/ML VIAL IV STA (23:28)
[2021-06-17] MEDS ORDERED: FAMOTIDINE 20 MG TAB PO ONE (23:28)
[2021-06-17] MEDS ORDERED: methylPREDNISolone Sod Succinate 125 MG/2 ML INJ IV ONE (23:28)
[2021-06-17] MEDS ORDERED: SODIUM CHLORIDE 0.9% 1000 ML 1,000 ML IV ONE (23:28)
--- NOTE | 2021-06-17 23:41 | Emergency Department Report ---
ED Allergic Reaction HPI - General Chief complaint: Allergic Reaction Stated complaint: ALLERGIC REACTION Time Seen by Provider: 06/17/21 23:28 Source: patient Mode of arrival: Ambulatory Limitations: No Limitations - History of Present Illness Initial Comments: 31-year-old F [place] female Of allergy presents emerged department complaining of consuming pineapples and a mixed drinks at a restaurant earlier today around 9 PM. After drinking the drink she began to experience tingling to her lips which began with oral pain lip swelling rash hives and pruritus. MD Complaint: allergic reaction -: Gradual Exposure: food Symptoms: itching, facial swelling. denies: hoarseness, syncopy, vomiting, other Severity: mild Treatment Prior to Arrival: none Previous Allergy History: none - Related Data Previous Rx's Medication Instructions Recorded Last Taken Type Famotidine [Acid Controller] 20 mg PO BID 3 Days #6 tablet 03/12/20 Unknown Rx Prednisone [predniSONE 10 mg 10 mg PO .TAPER #1 tab.ds.pk 03/12/20 Unknown Rx (6-Day Pack, 21 Tabs)] diphenhydrAMINE [Benadryl CAP] 25 mg PO QHS 3 Days #12 capsule 03/12/20 Unknown Rx Acetaminophen/Codeine [Tylenol 1 tab PO Q8H PRN #8 tab 05/26/20 Unknown Rx /Codeine # 3 tab] Clindamycin [Clindamycin CAP] 300 mg PO Q6H 10 Days #40 capsule 05/26/20 Unknown Rx Fluticasone [Flonase] 1 spray NS QDAY #1 bottle 08/06/20 Unknown Rx Meclizine [Antivert] 25 mg PO TID PRN #20 tablet 08/06/20 Unknown Rx Naproxen 500 mg PO BID #20 tablet 12/11/20 Unknown Rx Sulfamethoxazole/Trimethoprim 1 each PO BID 7 Days tablet 12/11/20 Unknown Rx [Bactrim DS TAB] Desloratadine [Clarinex] 5 mg PO DAILY #7 06/18/21 Unknown Rx EPINEPHrine [Epipen] 0.3 mg IJ ONCE #1 auto.injct 06/18/21 Unknown Rx Famotidine [Pepcid] 40 mg PO DAILY #14 tablet 06/18/21 Unknown Rx hydrOXYzine HCL [Atarax] 25 mg PO Q6HR PRN #20 tablet 06/18/21 Unknown Rx predniSONE [Deltasone] 50 mg PO QDAY #5 tab 06/18/21 Unknown Rx Allergies Allergy/AdvReac Type Severity Reaction Status Date / Time carrot Allergy Anaphylaxis Verified 03/12/20 13:59 pineapple Allergy Anaphylaxis Verified 03/12/20 13:59 ED Review of Systems ROS: Stated complaint: ALLERGIC REACTION Other details as noted in HPI Comment: All other systems reviewed and negative ED Past Medical Hx - Past Medical History Previous Medical History?: Yes Hx Hypertension: Yes - Surgical History Past Surgical History?: Yes Additional Surgical History: TUBAL LIG - Social History Smoking Status: Never Smoker Substance Use Type: None - Medications Home Medications: Home Medications Medication Instructions Recorded Confirmed Last Taken Type Famotidine [Acid Controller] 20 mg PO BID 3 Days #6 tablet 03/12/20 Unknown Rx Prednisone [predniSONE 10 mg 10 mg PO .TAPER #1 tab.ds.pk 03/12/20 Unknown Rx (6-Day Pack, 21 Tabs)] diphenhydrAMINE [Benadryl CAP] 25 mg PO QHS 3 Days #12 capsule 03/12/20 Unknown Rx Acetaminophen/Codeine [Tylenol 1 tab PO Q8H PRN #8 tab 05/26/20 Unknown Rx /Codeine # 3 tab] Clindamycin [Clindamycin CAP] 300 mg PO Q6H 10 Days #40 capsule 05/26/20 Unknown Rx Fluticasone [Flonase] 1 spray NS QDAY #1 bottle 08/06/20 Unknown Rx Meclizine [Antivert] 25 mg PO TID PRN #20 tablet 08/06/20 Unknown Rx Naproxen 500 mg PO BID #20 tablet 12/11/20 Unknown Rx Sulfamethoxazole/Trimethoprim 1 each PO BID 7 Days tablet 12/11/20 Unknown Rx [Bactrim DS TAB] Desloratadine [Clarinex] 5 mg PO DAILY #7 06/18/21 Unknown Rx EPINEPHrine [Epipen] 0.3 mg IJ ONCE #1 auto.injct 06/18/21 Unknown Rx Famotidine [Pepcid] 40 mg PO DAILY #14 tablet 06/18/21 Unknown Rx hydrOXYzine HCL [Atarax] 25 mg PO Q6HR PRN #20 tablet 06/18/21 Unknown Rx predniSONE [Deltasone] 50 mg PO QDAY #5 tab 06/18/21 Unknown Rx ED Physical Exam - General Limitations: No Limitations General appearance: alert, in no apparent distress - Head Head exam: Present: atraumatic, normocephalic - Eye Eye exam: Present: normal appearance, PERRL, EOMI Pupils: Present: normal accommodation - ENT ENT exam: Present: normal exam, normal orophraynx, mucous membranes moist, TM's normal bilaterally - Neck Neck exam: Present: normal inspection. Absent: tenderness, meningismus - Respiratory Respiratory exam: Present: normal lung sounds bilaterally. Absent: respiratory distress, wheezes, rales, chest wall tenderness, accessory muscle use, decreased breath sounds - Cardiovascular Cardiovascular Exam: Present: regular rate, normal rhythm. Absent: systolic murmur, diastolic murmur, rubs, gallop - GI/Abdominal GI/Abdominal exam: Present: soft, normal bowel sounds - Extremities Exam Extremities exam: Present: normal inspection - Back Exam Back exam: Present: normal inspection - Neurological Exam Neurological exam: Present: alert, oriented X3 - Psychiatric Psychiatric exam: Present: normal affect, normal mood - Skin Skin exam: Present: warm, dry, intact, normal color. Absent: rash ED Course Vital Signs 06/17/21 22:08 Temperature 98.0 F Pulse Rate 105 H Respiratory 14 Rate Blood Pressure 130/83 [Right] O2 Sat by Pulse 95 Oximetry ED Medical Decision Making - Medical Decision Making This patient presents with symptoms consistent with acute hypersensitivity reaction, likely acute allergic reaction. Presentation not consistent with acute anaphylaxis (lack of pulmonary, dermatologic, cardiovascular or GI symptoms, lack of hypotension or exposure to known allergen), angioedema, serum sickness(no recent drug exposure, lack of fevers, arthralgias), ingestion of preformed toxin. No evidence of airway compromise or shock at this time. Plan to treat for allergic reaction with H2/H1 blockers, steroids. No indication for epinephrine at this time. Plan Critical care attestation.: If time is entered above; I have spent that time in minutes in the direct care of this critically ill patient, excluding procedure time. ED Disposition Clinical Impression: Allergic reaction Disposition: 01 HOME / SELF CARE / HOMELESS Is pt being admited?: No Does the pt Need Aspirin: No Condition: Stable Instructions: Allergies, Adult, [id number], How to Use an Auto-Injector Pen Prescriptions: hydrOXYzine HCL [Atarax] 25 mg PO Q6HR PRN #20 tablet PRN Reason: Itching Desloratadine [Clarinex] 5 mg PO DAILY #7 predniSONE [Deltasone] 50 mg PO QDAY #5 tab EPINEPHrine [Epipen] 0.3 mg IJ ONCE #1 auto.injct Famotidine [Pepcid] 40 mg PO DAILY #14 tablet Referrals: TODD SOLANO MD [Staff Physician] - 3-5 Days PRIMARY CARE, [Primary Care Provider] - 3-5 Days
[2021-06-17] MEDS ORDERED: diphenhydrAMINE 25 MG CAP PO STA (23:48)
[2021-06-17] MEDS ORDERED: predniSONE 50 MG TAB PO STA (23:48)
== END 2021-06-18 02:06 | disposition home or self-care (01) ==
LOC: ED 21:50
DX: T78.40XA Allergy, unspecified, initial encounter (principal); I10 Essential (primary) hypertension; Z98.51 Tubal ligation status; Z91.018 Allergy to other foods; Z79.899 Other long term (current) drug therapy; X58.XXXA Exposure to other specified factors, initial encounter
CPT/HCPCS: 99282; J1200; J2930; J7030; J7512; Q0162

== ENCOUNTER 2021-08-24 09:17 | Emergency (ER) | payer SELFPAY ==
[2021-08-24 17:23] LABS: Bilirubin,Urine NEG (Negative); Blood,Urine NEG (Negative); Color,Urine Yellow (Yellow); Protein,Urine <15 mg/dL mg/dL (Negative)
[2021-08-24 17:29] LABS: Mucus,Urine 3+ /HPF
[2021-08-24 17:37] LABS: HCG Qualitative,Urine Negative (Negative)
--- NOTE | 2021-08-24 17:45 | Emergency Department Report ---
ED Female HPI - General Chief complaint: Urogenital-Female Stated complaint: FOUL SMELL AND DISCHARGE/VAGINAL AREA Time Seen by Provider: 08/24/21 16:26 Source: patient Mode of arrival: Ambulatory Limitations: No Limitations - History of Present Illness Initial comments: 31 yo black female with no pmh presents to ED for evaluation of vaginal discharg e. She states that for the past 3-4 days, she has been having a malodorous vaginal discharge. She denies fever, abdominal pain, and dysuria. She states that today, she was notified by a female whom she does not know that she was having unprotected sex with the patient's boyfriend and was diagnosed with chlamydia and herpes. Patient states that she also noticed some bumps on her perineal area also. MD Complaint: vaginal discharge, possible STD -: Gradual, days(s) (3-4) Severity scale (0 -10): 0 Are you Now?: No Last Menstrual Period: 08/14/21 EDC: 05/21/22 Associated Symptoms: vaginal discharge. denies: vaginal bleeding, abdominal pain, nausea/vomiting, fever/chills, headaches, loss of appetite, dysuria, hematuria, rash, seizure, shortness of breath, syncope, weakness - Related Data Sexually active: Yes Previous Rx's Medication Instructions Recorded Last Taken Type Famotidine [Acid Controller] 20 mg PO BID 3 Days #6 tablet 03/12/20 Unknown Rx Prednisone [predniSONE 10 mg 10 mg PO .TAPER #1 tab.ds.pk 03/12/20 Unknown Rx (6-Day Pack, 21 Tabs)] diphenhydrAMINE [Benadryl CAP] 25 mg PO QHS 3 Days #12 capsule 03/12/20 Unknown Rx Acetaminophen/Codeine [Tylenol 1 tab PO Q8H PRN #8 tab 05/26/20 Unknown Rx /Codeine # 3 tab] Clindamycin [Clindamycin CAP] 300 mg PO Q6H 10 Days #40 capsule 05/26/20 Unknown Rx Fluticasone [Flonase] 1 spray NS QDAY #1 bottle 08/06/20 Unknown Rx Meclizine [Antivert] 25 mg PO TID PRN #20 tablet 08/06/20 Unknown Rx Naproxen 500 mg PO BID #20 tablet 12/11/20 Unknown Rx Sulfamethoxazole/Trimethoprim 1 each PO BID 7 Days tablet 12/11/20 Unknown Rx [Bactrim DS TAB] Desloratadine [Clarinex] 5 mg PO DAILY #7 06/18/21 Unknown Rx EPINEPHrine [Epipen] 0.3 mg IJ ONCE #1 auto.injct 06/18/21 Unknown Rx Famotidine [Pepcid] 40 mg PO DAILY #14 tablet 06/18/21 Unknown Rx hydrOXYzine HCL [Atarax] 25 mg PO Q6HR PRN #20 tablet 06/18/21 Unknown Rx predniSONE [Deltasone] 50 mg PO QDAY #5 tab 06/18/21 Unknown Rx DOXYCYCLINE Hyclate [Vibramycin] 100 mg PO BID 7 Days #14 capsule 08/24/21 Unknown Rx Valacyclovir HCl [Valtrex] 1,000 mg PO BID 7 Days #14 tab 08/24/21 Unknown Rx metroNIDAZOLE [Flagyl] 500 mg PO BID 7 Days #14 tab 08/24/21 Unknown Rx Allergies Allergy/AdvReac Type Severity Reaction Status Date / Time carrot Allergy Anaphylaxis Verified 08/24/21 10:33 pineapple Allergy Anaphylaxis Verified 08/24/21 10:33 ED Review of Systems ROS: Stated complaint: FOUL SMELL AND DISCHARGE/VAGINAL AREA Other details as noted in HPI Comment: All other systems reviewed and negative Constitutional: denies: chills, fever ENT: denies: congestion Respiratory: denies: shortness of breath Cardiovascular: denies: chest pain, palpitations Gastrointestinal: denies: abdominal pain, nausea, vomiting Genitourinary: discharge, abnormal menses. denies: urgency, dysuria, frequency, hematuria, dyspareunia Musculoskeletal: denies: back pain Skin: denies: rash, lesions Neurological: denies: headache, weakness, numbness ED Past Medical Hx - Past Medical History Hx Hypertension: Yes - Surgical History Additional Surgical History: TUBAL LIG - Social History Smoking Status: Never Smoker Substance Use Type: None - Medications Home Medications: Home Medications Medication Instructions Recorded Confirmed Last Taken Type Famotidine [Acid Controller] 20 mg PO BID 3 Days #6 tablet 03/12/20 Unknown Rx Prednisone [predniSONE 10 mg 10 mg PO .TAPER #1 tab.ds.pk 03/12/20 Unknown Rx (6-Day Pack, 21 Tabs)] diphenhydrAMINE [Benadryl CAP] 25 mg PO QHS 3 Days #12 capsule 03/12/20 Unknown Rx Acetaminophen/Codeine [Tylenol 1 tab PO Q8H PRN #8 tab 05/26/20 Unknown Rx /Codeine # 3 tab] Clindamycin [Clindamycin CAP] 300 mg PO Q6H 10 Days #40 capsule 05/26/20 Unknown Rx Fluticasone [Flonase] 1 spray NS QDAY #1 bottle 08/06/20 Unknown Rx Meclizine [Antivert] 25 mg PO TID PRN #20 tablet 08/06/20 Unknown Rx Naproxen 500 mg PO BID #20 tablet 12/11/20 Unknown Rx Sulfamethoxazole/Trimethoprim 1 each PO BID 7 Days tablet 12/11/20 Unknown Rx [Bactrim DS TAB] Desloratadine [Clarinex] 5 mg PO DAILY #7 06/18/21 Unknown Rx EPINEPHrine [Epipen] 0.3 mg IJ ONCE #1 auto.injct 06/18/21 Unknown Rx Famotidine [Pepcid] 40 mg PO DAILY #14 tablet 06/18/21 Unknown Rx hydrOXYzine HCL [Atarax] 25 mg PO Q6HR PRN #20 tablet 06/18/21 Unknown Rx predniSONE [Deltasone] 50 mg PO QDAY #5 tab 06/18/21 Unknown Rx DOXYCYCLINE Hyclate [Vibramycin] 100 mg PO BID 7 Days #14 capsule 08/24/21 Unknown Rx Valacyclovir HCl [Valtrex] 1,000 mg PO BID 7 Days #14 tab 08/24/21 Unknown Rx metroNIDAZOLE [Flagyl] 500 mg PO BID 7 Days #14 tab 08/24/21 Unknown Rx ED Physical Exam - General Limitations: No Limitations General appearance: alert, in no apparent distress - Head Head exam: Present: atraumatic, normocephalic - Eye Eye exam: Present: normal appearance. Absent: conjunctival injection - Neck Neck exam: Present: normal inspection. Absent: tenderness, lymphadenopathy - Respiratory Respiratory exam: Present: normal lung sounds bilaterally. Absent: respiratory distress, wheezes, rales, rhonchi, stridor, chest wall tenderness - Cardiovascular Cardiovascular Exam: Present: regular rate, normal heart sounds - GI/Abdominal GI/Abdominal exam: Present: soft, normal bowel sounds. Absent: distended, tenderness, guarding, rebound, rigid - External exam: Present: erythema, lesions. Absent: normal external exam Speculum exam: Present: vaginal discharge, cervical discharge. Absent: vaginal bleeding, foreign body, tissue, laceration Bi-manual exam: Present: cervical motion tendernes. Absent: adnexal tenderness, uterine enlargement, uterine tenderness - Extremities Exam Extremities exam: Present: normal inspection, normal capillary refill. Absent: pedal edema, joint swelling, calf tenderness - Back Exam Back exam: Present: normal inspection. Absent: CVA tenderness (R), CVA tenderness (L), vertebral tenderness - Neurological Exam Neurological exam: Present: alert, oriented X3, normal gait - Psychiatric Psychiatric exam: Present: normal affect, normal mood - Skin Skin exam: Present: warm, dry, intact, normal color ED Course Vital Signs 08/24/21 08/24/21 10:27 18:30 Temperature 97 F L 98.7 F Pulse Rate 78 88 Respiratory 18 16 Rate Blood Pressure 141/96 128/90 [Right] O2 Sat by Pulse 98 100 Oximetry ED Medical Decision Making - Medical Decision Making 31 yo black female with no pmh presents to ED for evaluation of vaginal discharge. She states that for the past 3-4 days, she has been having a malodorous vaginal discharge. She denies fever, abdominal pain, and dysuria. She states that today, she was notified by a female whom she does not know that she was having unprotected sex with the patient's boyfriend and was diagnosed with chlamydia and herpes. Patient states that she also noticed some bumps on her perineal area also. Patient noted to have mild CMT on exam. Wet prep positive for bacterial vaginosis. Patient treated empirically for GC/Chlamydia with rocephin 500mg IM and discharged home with rx for 7 day coarse of doxycycline and flagyl. Bumps on vaginal area possibly early herpes outbreak, so patient will be given rx for Valtrex to take if she develops open sores in next 2-3 days. She is advised to follow up with director geothermal operations for further evaluation and management. She is advised to return to ed for concerning symptoms. She verbalized understanding of and agreement with plan of care. Critical care attestation.: If time is entered above; I have spent that time in minutes in the direct care of this critically ill patient, excluding procedure time. ED Disposition Clinical Impression: Bacterial vaginosis, Possible exposure to STD Disposition: HOME / SELF CARE / HOMELESS Is pt being admited?: No Does the pt Need Aspirin: No Condition: Stable Instructions: Antibiotic Medicine, Adult, [id number], Bacterial Vaginosis, [id number], Genital Herpes, Safe Sex, Bacterial Vaginosis (ED) Additional Instructions: Take medications as prescribed. Only take Valtrex if you notice painful open sores to your vaginal area. Increase intake of noncaffeinated fluids. Follow- up with your primary care provider if worsening symptoms. Return to the emergency department as needed. Prescriptions: metroNIDAZOLE [Flagyl] 500 mg PO BID 7 Days #14 tab Valacyclovir HCl [Valtrex] 1,000 mg PO BID 7 Days #14 tab DOXYCYCLINE Hyclate [Vibramycin] 100 mg PO BID 7 Days #14 capsule Referrals: [facility] [Provider Group] - 3-5 Days [facility] [Outside] - 3-5 Days Forms: STI Treatment and Prevention Time of Disposition: 17:45
[2021-08-24] MEDS ORDERED: LIDOCAINE-MPF (1%) 10 MG/1 ML VIAL 5 ML INFILTRATI ONE (17:49)
[2021-08-24 18:59] VITALS: BP 128/90
== END 2021-08-24 18:59 | disposition home or self-care (01) ==
LOC: ED 09:17
DX: N93.9 Abnormal uterine and vaginal bleeding, unspecified (principal); N77.1 Vaginitis, vulvitis and vulvovaginitis in diseases classified elsewhere; Z20.2 Contact with and (suspected) exposure to infections with a predominantly sexual mode of transmission; Z91.018 Allergy to other foods
CPT/HCPCS: 81001; 81025; 87210; 87591; 96372; 99284; J0696; J3490